=== PATIENT | male | born 1990 | race Caucasian/White ===

== ENCOUNTER 2021-01-06 03:45 | Emergency (ER) | payer BC ==
[2021-01-06] MEDS ORDERED: Ondansetron 4 MG/2 ML SDV IV ONE (03:58)
[2021-01-06] MEDS ORDERED: Sodium Chloride 0.9% 1,000 ML IV ONE (03:58)
--- NOTE | 2021-01-06 04:01 | EDM.PDOC ---
ED HPI GENERAL MEDICAL PROBLEM - General Stated Complaint: HEART RAPIDLY, SEIZURE Time Seen by Provider: 01/06/21 03:59 Source of Information: Reports: Patient, Family, RN, RN Notes Reviewed History Limitations: Reports: No Limitations - History of Present Illness INITIAL COMMENTS - FREE TEXT/NARRATIVE: Patient is a 30-year-old male who presents to ER with his significant other with complaint of seizure. Patient states he has an addiction to benzodiazepines, and has not taken any for 2 to 3 days. Patient states he takes more a day than the average person, states he takes approximately 100 mg/month. Patient states he swallows them orally. States he cut ties with his dealer the last time he received medication stating that this was the last time he was going to buy. He states he is interested in quitting. Denies any other drug use or alcohol use. Patient was staying at his grandmother's camper with his family when he went into the bathroom, girlfriend states she heard a thud in the bathroom and shaking. She went to check on him and found him having a seizure in the bathroom. Patient complains of some left arm pain from the fall in the bathroom. Significant other states he has not been making a whole lot of sense since the seizure activity. Patient states he had a seizure approximately a year ago, last February under similar circumstances. Patient and significant other states several scans were done at that time and he did follow-up with outpatient care in [place]. Denies any other health problems that he is aware of. Onset: Today, Sudden - Related Data Allergies Allergy/AdvReac Type Severity Reaction Status Date / Time codeine Allergy Hives Verified 01/06/21 04:21 Home Meds: Home Meds . [No Known Home Meds] 01/06/21 [History] ED ROS GENERAL - Review of Systems Review Of Systems: Comprehensive ROS is negative, except as noted in HPI. - Physical Exam Exam: See Below Exam Limited By: No Limitations General Appearance: Alert, WD/WN, Anxious, Moderate Distress Eye Exam: Bilateral Eye: EOMI, Periorbital Changes (petichia) Ears: Normal External Exam, Hearing Grossly Normal Nose: Normal Inspection Throat/Mouth: Normal Inspection, Normal Voice, No Airway Compromise Head Exam: Atraumatic, Normocephalic Neck: Normal Inspection, Supple, Non-Tender, Full Range of Motion Respiratory/Chest: No Respiratory Distress, Lungs Clear, Normal Breath Sounds, No Accessory Muscle Use, Chest Non-Tender Cardiovascular: Normal Peripheral Pulses, Regular Rate, Rhythm, No Edema, No Gallop, No JVD, No Murmur, No Rub, Tachycardia GI/Abdominal: Normal Bowel Sounds, Soft, Non-Tender (Male) Exam: Deferred Rectal (Males) Exam: Deferred Neuro Exam (Abbreviated): Alert, Oriented, CN II-XII Intact, Normal Cognition, No Motor/Sensory Deficits, Memory Loss Recent Events Back Exam: Normal Inspection, Full Range of Motion Extremities: Normal Inspection, Normal Range of Motion, Non-Tender, No Pedal Edema, Normal Capillary Refill Psychiatric: Anxious Skin Exam: Cool, Diaphoretic, Petechiae (around the eyes bilaterally and the neck) #1 Interpretation EKG Date: 01/06/21 Time: 03:45 Rhythm: Other (sinus tachycardia) Rate (Beats/Min): 105 [place]: Normal P-Wave: Present QRS: Normal ST-T: Normal QT: Normal Comparison: NA - No Prior EKG Course - Vital Signs Last Recorded V/S: Last Vital Signs Temp 97.9 F 01/06/21 04:15 Pulse 103 H 01/06/21 04:15 Resp 14 01/06/21 04:15 BP 142/93 H 01/06/21 04:15 Pulse Ox 97 01/06/21 04:15 - Orders/Labs/Meds Orders: Active Orders 24 hr Category Date Time Status Head wo Cont [CT] Urgent Exams 01/06/21 04:26 Ordered Humerus Lt [CR] Urgent Exams 01/06/21 04:26 Ordered DRUG SCREEN URINE BIORAD [URCHEM] Stat Lab 01/06/21 03:58 Ordered UA RFX LEODAN AND CULT IF INDIC [URIN] Stat Lab 01/06/21 03:58 Ordered Sodium Chloride 0.9% [Normal Saline] 1,000 ml Med 01/06/21 03:58 Active IV .BOLUS Medication Orders Sodium Chloride (Normal Saline) 1,000 mls @ 999 mls/hr IV .BOLUS ONE Stop: 01/06/21 04:58 Last Admin: 01/06/21 04:06 Dose: 999 mls/hr Documented by: RIANA Labs: Laboratory Tests 01/06/21 01/06/21 Range/Units 04:03 04:03 WBC 9.9 (5.0-10.0) 10^3/uL RBC 5.88 (4.6-6.2) 10^6/uL Hgb 17.3 (14.0-18.0) g/dL Hct 50.5 (40.0-54.0) % MCV 85.9 (80-100) fL MCH 29.4 (27.0-34.0) pg MCHC 34.3 (33.0-35.0) g/dL Plt Count 192 (150-450) 10^3/uL Neut % (Auto) 63.7 (42.2-75.2) % Lymph % (Auto) 29.9 (20.5-50.1) % [place] % (Auto) 4.7 (2-8) % Eos % (Auto) 1.4 (1.0-3.0) % Baso % (Auto) 0.3 (0.0-1.0) % Add Manual Diff Yes Neutrophils % (Manual) 63 (42-75) % Band Neutrophils % 1 % Lymphocytes % (Manual) 30 (20-50) % Monocytes % (Manual) 6 (2-8) % Sodium 142 (136-145) mmol/L Potassium 4.1 (3.5-5.1) mmol/L Chloride 104 (98-107) mmol/L Carbon Dioxide 21 (21-32) mmol/L Anion Gap 21.1 H (7-13) mEq/L BUN 18 (7-18) mg/dL Creatinine 1.26 (0.70-1.30) mg/dL Est Cr Clr Drug Dosing 86.50 mL/min Estimated GFR (MDRD) > 60 BUN/Creatinine Ratio 14.3 (No establ ref range) Glucose 157 H (70-99) mg/dL Calcium 9.3 (8.5-10.1) mg/dL Total Bilirubin 0.5 (0.2-1.0) mg/dL AST 29 (15-37) U/L ALT 83 H (16-63) U/L Alkaline Phosphatase 125 H (46-116) U/L Total Protein 7.8 (6.4-8.2) g/dL Albumin 4.8 (3.4-5.0) g/dL Globulin 3.0 Albumin/Globulin Ratio 1.6 Ethyl Alcohol < 3 (0) mg/dL Meds: Medications Generic Name Dose Route Start Last Admin Trade Name Freq PRN Reason Stop Dose Admin Sodium Chloride 1,000 mls @ 999 mls/hr 01/06/21 03:58 01/06/21 04:06 Normal Saline IV 01/06/21 04:58 999 mls/hr .BOLUS ONE Administration Discontinued Medications Generic Name Dose Route Start Last Admin Trade Name Valeriyq PRN Reason Stop Dose Admin Lorazepam 1 mg 01/06/21 04:34 Lorazepam 2 Mg/Ml Sdv IVPUSH 01/06/21 04:35 ONETIME ONE Lorazepam 2 mg 01/06/21 04:45 01/06/21 04:51 Lorazepam 2 Mg/Ml Sdv IVPUSH 01/06/21 04:46 2 mg ONETIME ONE Administration Ondansetron HCl 4 mg 01/06/21 03:58 01/06/21 04:06 Ondansetron 4 Mg/2 Ml Sdv IV 01/06/21 03:59 4 mg ONETIME ONE Administration - Re-Assessments/Exams Free Text/Narrative Re-Assessment/Exam: 01/06/21 05:[address] and admission with the patient and his significant other. Patient and significant other state they would like to drive to [place] and go straight to the ER for admission. They state they have a child with type 1 diabetes and do not have enough insulin to get through Thursday if he is admitted. I explained the risks of this, being the patient just had a seizure and is on approximately day three of benzo withdrawal. Informed them that the end result could be as this is very serious. Patient and significant other state understanding. I did explain they would need to sign AMA paperwork stating that once they leave the facility, the provider, the nursing staff, the facility are not responsible or liable for anything that happens. Both patient and significant other state understanding. Departure - Departure Time of Disposition: 05:11 Disposition: Against Medical Advice 07 Condition: Serious Clinical Impression: Benzodiazepine withdrawal with complication, Seizure - Discharge Information *PRESCRIPTION DRUG MONITORING PROGRAM REVIEWED*: No *COPY OF PRESCRIPTION DRUG MONITORING REPORT IN PATIENT NICO: No Instructions: Benzodiazepine Withdrawal, Finding Treatment for Addiction, Seizure, Adult, [id number] Forms: Refusal of Care AMA Additional Instructions: Highly suggest going straight to the ER in [place] if declining medical treatment at this facility Sepsis Event Note (ED) - Focused Exam Vital Signs: Vital Signs Temp Pulse Resp BP Pulse Ox 01/06/21 04:15 97.9 F 103 H 14 142/93 H 97 - My Orders Last 24 Hours: My Active Orders 01/06/21 03:58 DRUG SCREEN URINE BIORAD [URCHEM] Stat UA RFX LEODAN AND CULT IF INDIC [URIN] Stat Sodium Chloride 0.9% [Normal Saline] 1,000 ml IV .BOLUS 01/06/21 04:26 Head wo Cont [CT] Urgent Humerus Lt [CR] Urgent - Assessment/Plan Last 24 Hours: My Active Orders 01/06/21 03:58 DRUG SCREEN URINE BIORAD [URCHEM] Stat UA RFX LEODAN AND CULT IF INDIC [URIN] Stat Sodium Chloride 0.9% [Normal Saline] 1,000 ml IV .BOLUS 01/06/21 04:26 Head wo Cont [CT] Urgent Humerus Lt [CR] Urgent
[2021-01-06] MEDS ORDERED: LORazepam 2 MG/ML SDV IVPUSH ONE ×2 (04:34→04:45)
[2021-01-06 04:37] LABS: ANION GAP 21.1 mEq/L (7-13); CHLORIDE,CL 104 mmol/L (98-107); SODIUM,NA 142 mmol/L (136-145)
== END 2021-01-06 05:01 | disposition left against medical advice (07) ==
LOC: DL.ED 03:45
DX: R56.9 Unspecified convulsions (principal); F13.239 Sedative, hypnotic or anxiolytic dependence with withdrawal, unspecified; Z88.5 Allergy status to narcotic agent
CPT/HCPCS: 36415; 80053; 80307; 85025; 93010; 96374; 96375; 99284; J2060; J2405; J7030